=== PATIENT | female | born 1945 | race Caucasian/White ===

== ENCOUNTER 2024-01-21 10:38 | Outpatient (OUT) | payer MEDICARE, SELFPAY ==
--- NOTE | 2024-01-21 | XR_ITS ---
The [address] [address] Patient Name: RETA ZEPEDA MRN: [id number] date: 1945 Sex: F Assigned Patient Location: Current Patient Location: Accession/Order Number: [id number] Exam Date: 01/21/2024 10:50 Report Date: 01/22/2024 07:01 At the request of: JOSÉ MANUEL VILLA Procedure: XR foot LT min 3V PROCEDURE: XR foot LT min 3V HISTORY: LEFT FOOT PAIN COMPARISON: XR foot left 12/11/2022 FINDINGS: BONES:Prior mechanical fusion the first metatarsophalangeal joint via dorsal plate and screws. Single screw within head of second metatarsal. Prior resection of distal articular surface of second through 5th proximal phalanges. SOFT TISSUES:No visible soft tissue swelling. EFFUSION:None visible. OTHER: Negative. XR/XR foot LT min 3V IMPRESSION: 1 stable surgical changes without evidence of hardware failure or change in alignment. 2. No acute bone abnormality. Electronically authenticated by: CA CAPONE Date: 01/22/2024 07:01
== END 2024-01-21 10:39 | disposition home or self-care (01) ==
LOC: EC 10:40
PROVIDERS: Visit Provider Podiatrist Foot & Ankle Surgery
DX: M79.672 Pain in left foot (principal); Z98.890 Other specified postprocedural states
CPT/HCPCS: 73630